=== PATIENT | male | born 1935 | race Two or more races ===

== ENCOUNTER 2022-10-04 18:28 | Emergency (ER) | payer OTHER ==
[~2022-10-04] VITALS: Ht 182.9 cm; Wt 78.0 kg
[~2022-10-04 18:28] MED LIST: ARIP2TAB PO; CITA-73 PO; GLIP5TAB12 PO; IBUP800T27 PO; LAMO100T44 PO; METF-370 PO; PIO30T PO
[2022-10-05 01:06] LABS: Basophils # (auto) 0 10 ^3/uL (0-0.2); Basophils % (auto) 0.5 % (0.0-2.0); Eosinophils # (auto) 0.2 10 ^3/uL (0-0.8); Eosinophils % (auto) 2.4 % (0.0-7.0); Hematocrit 41.3 % (41.0-53.0); Hemoglobin 13.4 g/dL (13.5-17.5); Lymphocytes # (auto) 1.4 10 ^3/uL (0.4-5.4); Mean Corpuscular Hemoglobin 29.5 pg (28.0-32.0); Mean Corpuscular Hgb Conc. 32.4 g/dL (32.0-36.0); Mean Corpuscular Volume 90.9 fL (80.0-100.0); Monocytes # (auto) 0.6 10 ^3/uL (0-1.3); Monocytes % (auto) 6.9 % (0.0-12.0); Neutrophils # (auto) 5.9 10 ^3/uL (1.6-8.6); Neutrophils % (auto) 73.2 % (37.0-80.0); Nucleated Red Blood Cells % 0.1 %; Red Blood Cells 4.55 10^6/uL (4.5-5.90); White Blood Cell 8.1 10^3/uL (4.4-10.8)
[2022-10-05 01:28] LABS: BUN/Creatinine Ratio 16.9; Calcium 8.8 mg/dL (8.5-10.1); Potassium 4.4 mmol/L (3.5-5.1)
[2022-10-05 01:38] LABS: CRP High Sensitivity 5.63 mg/dL (< 0.3); Total Protein 6.7 g/dL (6.4-8.2)
[2022-10-05 01:48] LABS: Bilirubin, Total 0.4 mg/dL (0.2-1.0)
[2022-10-05] MEDS ORDERED: KETO2CRE4 EX (06:18)
[2022-10-05 06:40] VITALS: BP 169/67
== END 2022-10-05 06:41 | disposition home or self-care (01) ==
LOC: EDSEX 18:28 → EDBD 18:28 → ER 18:28
DX: B35.3 Tinea pedis (principal); E11.22 Type 2 diabetes mellitus with diabetic chronic kidney disease; N18.9 Chronic kidney disease, unspecified; Z90.49 Acquired absence of other specified parts of digestive tract; Z79.899 Other long term (current) drug therapy; Z88.0 Allergy status to penicillin
CPT/HCPCS: 36415; 80053; 83690; 84484; 85025; 85652; 86141